=== PATIENT | female | born 1960 | race Hispanic/Latino ===

== ENCOUNTER 2018-05-24 15:57 | Outpatient (CLI) | payer BC | END 2018-05-24 15:58 | disposition home or self-care (01) | LOC: BICMAMMO 15:57 | PROVIDERS: ATTEND Obstetrics & Gynecology | DX: Z12.31 Encounter for screening mammogram for malignant neoplasm of breast (principal) | CPT/HCPCS: 77063; 77067 ==

== ENCOUNTER 2018-06-16 10:16 | Outpatient (CLI) | payer BC ==
--- NOTE | 2018-06-16 13:47 | MRI ---
MRI CERVICAL SPINE WITHOUT CONTRAST: 06/16/2018 HISTORY: Neck pain with cervical radiculopathy. COMPARISON: None. TECHNIQUE: Multiplanar, multisequence MR imaging of the cervical spine obtained without contrast. FINDINGS: The sagittal STIR imaging demonstrates no focal area of osseous marrow edema. There is no anterolisthesis or retrolisthesis seen within the cervical spine. The craniocervical junction and the atlantoaxial interspace appear within normal limits. C2-C3: No central canal or neural foraminal stenosis. C3-C4: No central canal or neural foraminal stenosis. C4-C5: Small central disk protrusion. No central canal or neural foraminal stenosis. C5-C6: There is disk desiccation and disk bulge with partial effacement of the ventral thecal sac an d mild central canal stenosis. There is a small superimposed right paracentral disk herniation. Mil d right neural foraminal stenosis. No significant left neural foraminal stenosis. Motion artifact s lightly limits detailed assessment at this axial level. C6-C7: No central canal or neural foraminal stenosis. C7-T1: No central canal or neural foraminal stenosis. No focal area of abnormal signal intensity is identified within the cervical cord. IMPRESSION: Degenerative change noted within the cervical spine. Findings are most significant at C5-C6, where t here is disk bulge, with a small right paracentral disk protrusion causing mild central canal stenosi s and mild right neural foraminal stenosis. POS: [facility]
== END 2018-06-16 10:17 | disposition home or self-care (01) ==
LOC: TBSIIMAG 10:16
PROVIDERS: ATTEND Neurological Surgery
DX: M47.22 Other spondylosis with radiculopathy, cervical region (principal); M48.02 Spinal stenosis, cervical region; M50.222 Other cervical disc displacement at C5-C6 level
CPT/HCPCS: 72141

== ENCOUNTER 2018-07-06 06:29 | Day surgery (SDC) | payer BC ==
[2018-07-05 09:20] VITALS: BMI 23.9
[2018-07-06] MEDS ORDERED: Fentanyl 100 MCG/2 ML VIAL ONE ×2 (06:40→08:54)
[2018-07-06] MEDS ORDERED: CEFAZOLIN 2 GM/50 ML BAG ONE (07:00)
[2018-07-06] MEDS ORDERED: Sodium Chloride 0.9% 0 ML ONE (07:15)
[2018-07-06] MEDS ORDERED: Sodium Chloride 0.9% 10 ML ONE (08:13)
[2018-07-06] MEDS ORDERED: Meperidine HCl/PF 25 MG/ML VIAL SLOW IVP PRN (09:37)
[2018-07-06] MEDS ORDERED: PACU-Morphine 4MG/ML VIAL SLOW IVP PRN (09:37)
[2018-07-06] MEDS ORDERED: Promethazine HCl 25 MG/ML VIAL IM PRN (09:37)
[2018-07-06] MEDS ORDERED: HYDROmorphone 2 MG/ML VIAL SLOW IVP PRN (09:37)
[2018-07-06] MEDS ORDERED: Morphine Sulfate 2 MG/ML SYRINGE SLOW IVP PRN (09:37)
[2018-07-06] MEDS ORDERED: Promethazine HCl 25 MG/ML VIAL SLOW IVP PRN (09:37)
[2018-07-06] MEDS ORDERED: Ondansetron HCl/PF 4 MG/2 ML Vial IVP PRN (09:37)
[2018-07-06] MEDS ORDERED: Morphine 4 MG/ML VIAL ONE (11:25)
[2018-07-06] MEDS ORDERED: Morphine 2 MG/ML SYRINGE ONE (12:01)
[2018-07-06] MEDS ORDERED: HYDROcodone/Acetaminophen 5/325 mg Tablet ONE (12:06)
[2018-07-06] MEDS ORDERED: traMADol HCl 50 MG TAB ONE (12:11)
--- NOTE | 2018-07-06 13:07 | OP ---
DATE OF PROCEDURE: 07/06/2018 MANAGER VEHICLE: Felix Persaud PA-C PROCEDURES PERFORMED: Anterior cervical diskectomy C5-C6, interbody arthrodesis, intravertebral biomechanical device, local morselized autograft, demineralized bone matrix, anterior titanium instrumentation C5-C6. DESCRIPTION OF PROCEDURE: The patient was brought to the operating room and intubated. She was positioned supine with the head in modest extension on a gel-filled donut. An incision was made in the right precervical area and dissected medial to the sternocleidomastoid muscle, identified the anterior cervical spinal, and the level was confirmed by x-ray. We placed distraction across C5-C6 and using operative microscope and microdissection techniques, we completely removed the intervertebral disk, decompressing the neural elements from parameter frame with particular attention to the right. Bony endplates were then decorticated for the first arthrodesis and appropriate-sized intervertebral biomechanical PEEK device was brought into the field and filled with demineralized bone matrix and local morselized autograft and tapped in place securely at C5-C6. Next, an anterior plate was brought into the field and secured to C5 and C6 using two 14-mm screws at each level. The wound was extensively irrigated and maximum hemostasis was secured and the wound was closed in anatomic layers. Job ID: [id number]
[2018-07-06] MEDS ORDERED: Dexamethasone 20 MG/5 ML VIAL ONE (15:03)
[2018-07-06] MEDS ORDERED: Ondansetron PF 4 MG/2 ML Vial ONE (15:03)
[2018-07-06] MEDS ORDERED: Lidocaine 1% PF 5 ML VIAL ONE (15:03)
[2018-07-06] MEDS ORDERED: PROPOFOL 200 MG/20 ML VIAL ONE (15:03)
[2018-07-06] MEDS ORDERED: Glycopyrrolate 0.2 MG/ML 5 ML SYRINGE ONE (15:03)
[2018-07-06] MEDS ORDERED: Rocuronium Bromide 10 MG/ML (10ML VIAL) ONE (15:03)
[2018-07-06] MEDS ORDERED: Metoclopramide HCl 10 MG/2 ML VIAL ONE (15:03)
== END 2018-07-06 13:30 | disposition home or self-care (01) ==
LOC: SDC 06:29
PROVIDERS: ATTEND Neurological Surgery
PROC: 0RG10A0 Fusion of Cervical Vertebral Joint with Interbody Fusion Device, Anterior Approach, Anterior Column, Open Approach (ICD-10-PCS; principal; 2018-07-06)
DX: M54.12 Radiculopathy, cervical region (principal); Z90.49 Acquired absence of other specified parts of digestive tract; Z79.3 Long term (current) use of hormonal contraceptives; Z98.890 Other specified postprocedural states
CPT/HCPCS: 76000; C1713; C1776; J0131; J1100; J2001; J2270; J2405; J2704; J2765; J3010; J3490

== ENCOUNTER 2018-07-20 15:33 | Outpatient (CLI) | payer BC ==
--- NOTE | 2018-07-20 16:10 | RAD ---
CERVICAL SPINE FOUR VIEWS: HISTORY: Cervical radiculopathy. Status post fusion_surgery. FINDINGS: There is no prevertebral soft tissue swelling. The predental space is normal. On the open-mouth pro jection, limited evaluation of the odontoid process. The lateral masses of C1 and C2 articulate appr opriately. On the AP projection, there is no malalignment. Mild facet hypertrophy. There is an anterior fusion plate with a transvertebral body screw at C5-C6. No perihardware lucency . Straightening of normal cervical lordosis is noted. IMPRESSION: Uncomplicated cervical fusion at C5-C6. POS: [facility]
== END 2018-07-20 15:34 | disposition home or self-care (01) ==
LOC: TBSIIMAG 15:33
PROVIDERS: ATTEND Neurological Surgery
DX: M54.12 Radiculopathy, cervical region (principal); Z98.1 Arthrodesis status
CPT/HCPCS: 72040

== ENCOUNTER 2018-08-25 08:37 | Inpatient (IN) | payer BC ==
[~2018-08-25 08:37] MED LIST: ISOVUE-370 76%-LOCM 1 ML ONE
[2018-08-25] MEDS ORDERED: Ketorolac Tromethamine 30 MG/ML VIAL ONE (08:43)
[2018-08-25] MEDS ORDERED: Fentanyl 100 MCG/2 ML VIAL ONE (08:47)
[2018-08-25 08:58] LABS: #Eosinphils 0.1 thou/uL (0.0-0.7); #Lymphocytes 1.7 thou/uL (1.20-3.40); #Monocytes 0.8 thou/uL (0.11-0.59); #Neutrophils 15.1 thou/uL (1.40-6.50); %Basophils 0.3 % (0.0-1.0); %Eosinophils 0.5 % (0.0-10.0); %Lymphocytes 9.5 % (21.0-51.0); %Monocytes 4.7 % (0.0-10.0); %Neutrophils 85.1 % (42.0-75.0); Hemoglobin 13.4 g/dL (12.0-16.0); Mean Corpuscular HGB CONC 32.9 g/dL (32.0-36.0); Mean Corpuscular Hemoglobin 29.4 pg (27.0-31.0); Mean Corpuscular Volume 89.1 fL (78.0-98.0); Mean Platelet Volume 8.1 fL (7.4-10.4); Platelet Count 211 thou/uL (130-400); RBC Distribution Width 13.4 % (11.5-14.5); Red Blood Cell (RBC) Count 4.55 mill/uL (4.20-5.40); White Blood Cell (WBC) Count 17.7 thou/uL (4.8-10.8)
[2018-08-25] MEDS ORDERED: Lidocaine 1% w/Epinephrine 1:100K 20 ML VIAL ONE (09:06)
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
[2018-08-25] MEDS ORDERED: Lidocaine 1% (PF) 30 ML VIAL ONE (09:08)
[2018-08-25 09:19] LABS: ALT (SGPT) 21 U/L (8-55); AST (SGOT) 24 U/L (5-34); Albumin 3.6 g/dL (3.5-5.0); Alkaline Phosphatase 66 U/L (40-150); Anion Gap 17 mmol/L (10-20); BUN (Urea Nitrogen) 15 mg/dL (9.8-20.1); Bilirubin, Total 0.5 mg/dL (0.2-1.2); Calc. Creatinine Clearance 0 mL/min (70-130); Calcium 9.4 mg/dL (7.8-10.44); Carbon Dioxide 17 mmol/L (22-29); Chloride 109 mmol/L (98-107); Estimated GFR-MDRD Greater than 90; Globulin 3.4 g/dL (2.4-3.5); Glucose 128 mg/dL (70-105); Potassium 3.8 mmol/L (3.5-5.1); Sodium 139 mmol/L (136-145)
[2018-08-25 09:20] LABS: INR-International Normal Ratio 1.2
[2018-08-25] MEDS ORDERED: Morphine 4 MG/ML VIAL SLOW IVP PRN (09:31)
[2018-08-25] MEDS ORDERED: Ondansetron ODT 4 MG TAB PO PRN (09:31)
[2018-08-25] MEDS ORDERED: hydrALAZINE 20 MG/ML VIAL SLOW IVP PRN (09:31)
[2018-08-25] MEDS ORDERED: Ondansetron PF 4 MG/2 ML Vial IVP PRN (09:31)
[2018-08-25] MEDS ORDERED: Dextrose 5% in Water 1,000 ML IV PRN (09:31)
[2018-08-25] MEDS ORDERED: Dextrose 50% Abboject 50 ML SYRINGE SLOW IVP PRN (09:31)
[2018-08-25] MEDS ORDERED: Cyclobenzaprine 10 MG TAB PO PRN (09:39)
[2018-08-25] MEDS ORDERED: Sodium Chloride 0.9% 1,000 ML IV SCH (09:45)
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
[2018-08-25] MEDS ORDERED: Ondansetron PF 4 MG/2 ML Vial ONE (10:04)
[2018-08-25] MEDS ORDERED: Morphine 10 MG/ML VIAL ONE (10:04)
[2018-08-25] MEDS ORDERED: Adacel (T-DAP) 0.5 ML SYRINGE ONE (10:05)
[2018-08-25 10:08] LABS: Magnesium 1.8 mg/dL (1.6-2.6); Phosphorus 3.1 mg/dL (2.3-4.7)
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
[2018-08-25] MEDS ORDERED: traMADol HCl 50 MG TAB ONE ×2 (11:52)
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
[2018-08-25] MEDS ORDERED: Cyclobenzaprine 10 MG TAB ONE (14:02)
[2018-08-25] MEDS: Acetaminophen 500 MG TAB PO SCH ×3 (15:15→21:36)
[2018-08-25] MEDS: Ibuprofen 800 MG TAB PO SCH ×2 (15:15→17:53)
[2018-08-25] MEDS: traMADol HCl 50 MG TAB PO SCH ×3 (15:15→21:35)
[2018-08-25] MEDS: Gabapentin 300 MG CAP PO SCH ×2 (15:22→21:36)
--- NOTE | 2018-08-25 16:00 | PDOC.EVN ---
Event Note - Event Note Event Note: Was called by the ER nurse and notified that the patient could only void 30ml in the bed pain and felt she needed to void. Pt became diaphoretic and hypotensive but immediately returned to baseline. A bladder scan was performed with approx. 900ml. Pt was in and out cathed with 800 output which made the patient feel better. Normal VS and exam. Pt also in moderate pain. Asked nurse to make sure she got her scheduled pain meds before going to her room. Pt denies pain or posterior neck tenderness. Full ROM with pain. C-spine cleared and c-collar removed. Right foot and ankle Xray ordered due to pain.
[2018-08-25 16:58] VITALS: BMI 25.6
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
[2018-08-25] MEDS: Famotidine 20 MG TAB PO SCH (21:36)
[2018-08-26] MEDS: Ibuprofen 800 MG TAB PO SCH ×3 (02:51→18:41)
[2018-08-26] MEDS: Acetaminophen 500 MG TAB PO SCH ×3 (03:49→18:41)
[2018-08-26] MEDS: traMADol HCl 50 MG TAB PO SCH ×4 (03:50→21:14)
[2018-08-26 05:49] LABS: #Eosinphils 0.1 thou/uL (0.0-0.7); #Lymphocytes 1.6 thou/uL (1.20-3.40); #Monocytes 0.6 thou/uL (0.11-0.59); #Neutrophils 5.7 thou/uL (1.40-6.50); %Basophils 0.6 % (0.0-1.0); %Eosinophils 1.1 % (0.0-10.0); %Lymphocytes 19.6 % (21.0-51.0); %Monocytes 7.8 % (0.0-10.0); Hemoglobin 10.8 g/dL (12.0-16.0); Mean Corpuscular HGB CONC 33.2 g/dL (32.0-36.0); Mean Corpuscular Hemoglobin 30.1 pg (27.0-31.0); Mean Corpuscular Volume 90.5 fL (78.0-98.0); Mean Platelet Volume 8.2 fL (7.4-10.4); Platelet Count 209 thou/uL (130-400); RBC Distribution Width 13.4 % (11.5-14.5); White Blood Cell (WBC) Count 8.1 thou/uL (4.8-10.8)
[2018-08-26 05:51] LABS: ALT (SGPT) 46 U/L (8-55); AST (SGOT) 51 U/L (5-34); Alkaline Phosphatase 66 U/L (40-150); Anion Gap 9 mmol/L (10-20); BUN (Urea Nitrogen) 8 mg/dL (9.8-20.1); Bilirubin, Total 0.7 mg/dL (0.2-1.2); Calc. Creatinine Clearance 97 mL/min (70-130); Calcium 8.7 mg/dL (7.8-10.44); Carbon Dioxide 21 mmol/L (22-29); Chloride 111 mmol/L (98-107); Estimated GFR-MDRD Greater than 90; Globulin 2.7 g/dL (2.4-3.5); Glucose 123 mg/dL (70-105); Magnesium 2.3 mg/dL (1.6-2.6); Potassium 3.8 mmol/L (3.5-5.1); Protein, Total 5.7 g/dL (6.0-8.3); Sodium 137 mmol/L (136-145)
[2018-08-26 05:56] LABS: Phosphorus 2.4 mg/dL (2.3-4.7)
--- NOTE | 2018-08-26 08:19 | RAD ---
SINGLE VIEW OF THE CHEST: COMPARISON: 08/25/2018. HISTORY: Right pneumothorax status post chest tube placement. FINDINGS: A single view of the chest shows a normal-size cardiomediastinal silhouette. There has been placemen t of a right-sided chest tube with evacuation of the previously seen pneumothorax. No consolidation, mass, or pleural effusion are seen. IMPRESSION: Evacuation of right pneumothorax. POS: [facility]
--- NOTE | 2018-08-26 08:35 | CT ---
CT HEAD WITHOUT CONTRAST: 08/26/2018 HISTORY: Evaluate traumatic brain injury, trauma. Findings suspicious for small volume acute subdural hemorrh age noted on prior CT exam. COMPARISON: 08/25/2018 TECHNIQUE: Axial CT imaging at 5 mm intervals from the vertex through the skull base without contrast. FINDINGS: Along the anterior aspect of the interhemispheric falx, there is nodular hyperdensity, measuring up t o 3 mm in transverse dimension, similar when compared to the prior examination, suggesting a small am ount of acute subdural blood. No midline shift or mass effect. No ventricular enlargement. No sign ificant interval change. The imaged paranasal sinuses/mastoid air cells appear well aerated. No dis placed calvarial fracture. IMPRESSION: Findings suggesting small volume stable subdural hemorrhage, as detailed above. POS: [facility]
[2018-08-26] MEDS ORDERED: CEFAZOLIN 2 GM in Premix Bag 1 BAG IVPB SCH (09:30)
[2018-08-26] MEDS ORDERED: Ketorolac Tromethamine 30 MG/ML VIAL ONE (09:45)
[2018-08-26] MEDS ORDERED: Dexamethasone 20 MG/5 ML VIAL ONE (09:45)
[2018-08-26] MEDS ORDERED: PROPOFOL 200 MG/20 ML VIAL ONE (09:45)
[2018-08-26] MEDS ORDERED: Ondansetron PF 4 MG/2 ML Vial ONE (09:45)
[2018-08-26] MEDS ORDERED: Lidocaine 1% PF 5 ML VIAL ONE (09:45)
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
[2018-08-26] MEDS: Gabapentin 300 MG CAP PO SCH ×3 (10:01→21:15)
[2018-08-26] MEDS: Famotidine 20 MG TAB PO SCH ×2 (10:02→21:14)
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
[2018-08-26] MEDS ORDERED: Midazolam HCl 2 mg/2 ml Vial ONE (12:15)
[2018-08-26] MEDS ORDERED: Fentanyl 100 MCG/2 ML VIAL ONE (12:15)
[2018-08-26] MEDS ORDERED: Bupivacaine HCl 0.5%/Epinephrine 1:200,000/PF 30 ml Vial ONE (13:13)
[2018-08-26] MEDS ORDERED: Promethazine HCl 25 MG/ML VIAL IM PRN (13:50)
[2018-08-26] MEDS ORDERED: Promethazine HCl 25 MG/ML VIAL SLOW IVP PRN (13:50)
[2018-08-26] MEDS ORDERED: Ondansetron HCl/PF 4 MG/2 ML Vial IVP PRN (13:50)
[2018-08-26] MEDS ORDERED: Morphine Sulfate 2 MG/ML SYRINGE SLOW IVP PRN (13:50)
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
[2018-08-26] MEDS: CEFAZOLIN 2 GM in Premix Bag 1 BAG IVPB SCH (21:07)
[2018-08-27] MEDS: Acetaminophen 500 MG TAB PO SCH ×5 (00:53→18:43)
[2018-08-27] MEDS: Ibuprofen 800 MG TAB PO SCH ×3 (01:00→18:43)
[2018-08-27] MEDS: traMADol HCl 50 MG TAB PO SCH ×4 (05:05→21:17)
[2018-08-27] MEDS: CEFAZOLIN 2 GM in Premix Bag 1 BAG IVPB SCH (05:07)
[2018-08-27] MEDS ORDERED: Potassium Phosphate 30 MMOL in Sodium Chloride 0.9% 500 ML IVPB SCH (07:00)
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
[2018-08-27] MEDS: Famotidine 20 MG TAB PO SCH ×2 (08:59→21:17)
[2018-08-27] MEDS: Gabapentin 300 MG CAP PO SCH ×3 (08:59→21:17)
[2018-08-27] MEDS ORDERED: ETHINYL ESTRADIOL PO SCH (09:00)
[2018-08-27] MEDS ORDERED: DROSPIRENONE PO SCH (09:00)
[2018-08-27] MEDS: Enoxaparin Sodium 40 MG/0.4 ML SYRINGE SC SCH (09:00)
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
[2018-08-28] MEDS: Ibuprofen 800 MG TAB PO SCH ×2 (01:09→09:41)
[2018-08-28] MEDS: Acetaminophen 500 MG TAB PO SCH ×3 (01:09→12:33)
[2018-08-28 05:00] LABS: #Basophils 0.1 thou/uL (0.0-0.2); #Eosinphils 0.2 thou/uL (0.0-0.7); #Lymphocytes 1.8 thou/uL (1.20-3.40); #Monocytes 0.6 thou/uL (0.11-0.59); %Basophils 0.8 % (0.0-1.0); %Eosinophils 3.4 % (0.0-10.0); %Lymphocytes 26.6 % (21.0-51.0); %Monocytes 8.4 % (0.0-10.0); %Neutrophils 60.8 % (42.0-75.0); Hemoglobin 10.2 g/dL (12.0-16.0); Mean Corpuscular HGB CONC 33.2 g/dL (32.0-36.0); Mean Corpuscular Hemoglobin 29.7 pg (27.0-31.0); Mean Corpuscular Volume 89.3 fL (78.0-98.0); Mean Platelet Volume 8.4 fL (7.4-10.4); Platelet Count 205 thou/uL (130-400); RBC Distribution Width 13.4 % (11.5-14.5); Red Blood Cell (RBC) Count 3.43 mill/uL (4.20-5.40); White Blood Cell (WBC) Count 6.6 thou/uL (4.8-10.8)
[2018-08-28 05:23] LABS: Anion Gap 12 mmol/L (10-20); BUN (Urea Nitrogen) 10 mg/dL (9.8-20.1); Calc. Creatinine Clearance 104 mL/min (70-130); Calcium 8.4 mg/dL (7.8-10.44); Carbon Dioxide 20 mmol/L (22-29); Chloride 110 mmol/L (98-107); Estimated GFR-MDRD Greater than 90; Glucose 92 mg/dL (70-105); Magnesium 1.6 mg/dL (1.6-2.6); Sodium 138 mmol/L (136-145)
[2018-08-28] MEDS: traMADol HCl 50 MG TAB PO SCH ×2 (05:31→09:41)
[2018-08-28] MEDS: Gabapentin 300 MG CAP PO SCH (08:29)
[2018-08-28] MEDS: Enoxaparin Sodium 40 MG/0.4 ML SYRINGE SC SCH (08:30)
[2018-08-28] MEDS: Famotidine 20 MG TAB PO SCH (08:30)
[2018-08-28] MEDS ORDERED: Polyethylene Glycol 3350 17 GM Packet PO SCH (09:00)
[2018-08-28] MEDS ORDERED: Senokot S 8.6-50 MG TAB PO SCH (09:00)
--- NOTE | 2018-08-28 10:01 | RAD ---
PORTABLE CHEST: DATE: 08/28/2018. PROVIDED CLINICAL HISTORY: Chest tube removal. FINDINGS: Comparison is made with the study dated 08/27/2018. Cardiac and mediastinal silhouette was unchanged in appearance. Interval removal of right-sided chest tube with small volume right pneumothorax demon strated. The lungs appear clear. No evidence for pleural fluid. IMPRESSION: Small volume right pneumothorax status post chest tube removal. CODE T POS: NEIDA
[2018-08-28 12:13] VITALS: BP 129/71; TEMP 97.9
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
== END 2018-08-28 15:37 | disposition home or self-care (01) | DRG 958 ==
LOC: ERS 08:37 → ERHOLD 09:31 → SURG A 14:51
PROVIDERS: ADMIT Surgery; ATTEND Surgery
PROC: 0W9900Z Drainage of Right Pleural Cavity with Drainage Device, Open Approach (ICD-10-PCS; principal; 2018-08-25)
PROC: 0QSN04Z Reposition Right Metatarsal with Internal Fixation Device, Open Approach (ICD-10-PCS; 2018-08-25)
DX: S92.351A Displaced fracture of fifth metatarsal bone, right foot, initial encounter for closed fracture (principal); S06.6X9A Traumatic subarachnoid hemorrhage with loss of consciousness of unspecified duration, initial encounter; J93.9 Pneumothorax, unspecified; S27.321A Contusion of lung, unilateral, initial encounter; S22.43XA Multiple fractures of ribs, bilateral, initial encounter for closed fracture; V89.2XXA Person injured in unspecified motor-vehicle accident, traffic, initial encounter; S90.01XA Contusion of right ankle, initial encounter
CPT/HCPCS: 36415; 51701; 70450; 71045; 71260; 72125; 72170; 74177; 76000; 80048; 80053; 83735; 84100; 85025; 85610; 85730; 86850; 86900; 86901; 90471; 90715; 93005; 94640; 96361; 96374; 96375; A4353; C1713; C1769; G0390; J0670; J1650; J1885; J2001; J2250; J2270; J2405; J3010; J3475; J7050; J7620; Q9966

== ENCOUNTER 2018-09-07 12:37 | Outpatient (CLI) | payer BC ==
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
== END 2018-09-07 12:38 | disposition home or self-care (01) ==
LOC: RAD 12:37
PROVIDERS: ATTEND Nurse Practitioner Family
DX: S22.43XD Multiple fractures of ribs, bilateral, subsequent encounter for fracture with routine healing (principal); Z98.890 Other specified postprocedural states
CPT/HCPCS: 71046

== ENCOUNTER 2018-09-16 12:54 | Outpatient (CLI) | payer BC ==
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
== END 2018-09-16 12:55 | disposition home or self-care (01) ==
LOC: TBSIIMAG 12:54
PROVIDERS: ATTEND Neurological Surgery
DX: M50.10 Cervical disc disorder with radiculopathy, unspecified cervical region (principal)
CPT/HCPCS: 72040

== ENCOUNTER 2018-10-21 14:00 | Outpatient (CLI) | payer BC ==
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
== END 2018-10-21 14:01 | disposition home or self-care (01) ==
LOC: TBSIIMAG 14:00
PROVIDERS: ATTEND Neurological Surgery
DX: S06.5X0D Traumatic subdural hemorrhage without loss of consciousness, subsequent encounter (principal)
CPT/HCPCS: 70450

== ENCOUNTER 2019-03-25 07:48 | Day surgery (SDC) | payer BC ==
[2019-03-24 11:08] VITALS: BMI 25.6
[2019-03-25] MEDS ORDERED: Bupivacaine PF 0.5% 30 ML VIAL ONE (08:53)
[2019-03-25] MEDS ORDERED: Fentanyl 100 MCG/2 ML VIAL ONE (09:05)
[2019-03-25] MEDS ORDERED: HYDROcodone/Acetaminophen 5/325 mg Tablet ONE (10:39)
--- NOTE | 2019-03-25 13:43 | OP ---
DATE OF PROCEDURE: 03/25/2019 PREOPERATIVE DIAGNOSIS: Symptomatic retained hardware, right foot. POSTOPERATIVE DIAGNOSIS: Symptomatic retained hardware, right foot. PROCEDURE PERFORMED: Removal of screw from right fifth metatarsal. ANESTHESIA: General. TOURNIQUET TIME: Zero. ESTIMATED BLOOD LOSS: Less than 5 mL. COMPLICATIONS: None. DRAINS: None. SPECIMEN: Explanted screw given to the patient. INDICATIONS FOR PROCEDURE: The patient is a 58-year-old lady, status post fracture of the base of right fifth metatarsal. This was displaced and treated with open reduction and screw fixation. The patient has gone on to heal her fracture and now is having symptoms from the retained hardware. After discussion with the patient including risks and benefits, we decided to proceed with removal of this retained screw. Informed consent has been obtained. I believe all questions answered. DESCRIPTION OF PROCEDURE: The patient was brought to the operating room, and a time-out performed followed by induction of general anesthesia. Next, she was positioned supine on the OR table, and a sterile prep and drape was performed on the right lower extremity. Next, following the path of the prior skin incision, skin was incised proximal to the base of the fifth metatarsal. Blunt dissection was carried down to the screw head. The screw head was identified, and then the screw removed without difficulty. The wound was then irrigated with bulb syringe and then closed with two 3-0 nylon interrupted sutures. Xeroform gauze and SHANNON wrap dressing were then applied to the foot, and then the patient was transferred to recovery room in stable condition. There were no complications. She tolerated the procedure well. Job ID: [id number]
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
== END 2019-03-25 10:55 | disposition home or self-care (01) ==
LOC: SDC 07:48
PROVIDERS: ATTEND Orthopaedic Surgery
PROC: 0QP Lower Bones, Removal (ICD-10-PCS; principal; 2019-03-25)
DX: T84.84XA Pain due to internal orthopedic prosthetic devices, implants and grafts, initial encounter (principal)
CPT/HCPCS: 76000; J0690; J3010; S0020

== ENCOUNTER 2020-08-03 08:40 | Outpatient (CLI) | payer BC ==
--- NOTE | 2020-08-03 08:58 | RAD ---
EXAM: Chest PA and lateral: HISTORY: Pain COMPARISON: 09/07/2018 FINDINGS: Heart size:Within normal limits. Lungs:Clear of acute process. No confluent pneumonia, overt edema, pleural effusion, or other acute process. IMPRESSION: No significant acute intrathoracic disease.
== END 2020-08-03 08:41 | disposition home or self-care (01) ==
LOC: RAD-FRANK 08:40
PROVIDERS: ATTEND Nurse Practitioner Family
DX: M35.3 Polymyalgia rheumatica (principal)
CPT/HCPCS: 71046

== ENCOUNTER 2020-09-20 15:04 | Outpatient (CLI) | payer BC | END 2020-09-20 15:05 | disposition home or self-care (01) | LOC: BICMAMMO 15:04 | PROVIDERS: ATTEND Internal Medicine Rheumatology | DX: Z13.820 Encounter for screening for osteoporosis (principal); Z78.0 Asymptomatic menopausal state; M81.0 Age-related osteoporosis without current pathological fracture | CPT/HCPCS: 77080 ==

== ENCOUNTER 2021-10-22 08:27 | Outpatient (CLI) | payer BC | END 2021-10-22 08:28 | disposition home or self-care (01) | LOC: BICMAMMO 08:27 | PROVIDERS: ATTEND Internal Medicine Rheumatology | DX: M81.0 Age-related osteoporosis without current pathological fracture (principal); M85.89 Other specified disorders of bone density and structure, multiple sites | CPT/HCPCS: 77080 ==

== ENCOUNTER 2023-02-18 13:20 | Outpatient (CLI) | payer BC | END 2023-02-18 13:21 | disposition home or self-care (01) | LOC: RAD-FRANK 13:20 | PROVIDERS: ATTEND Nurse Practitioner Family | DX: S60.459A Superficial foreign body of unspecified finger, initial encounter (principal); Z18.9 Retained foreign body fragments, unspecified material; M79.89 Other specified soft tissue disorders ==

== ENCOUNTER 2023-02-20 22:38 | Observation (INO) | payer BC ==
[2023-02-20 23:33] LABS: #Monocytes 0.9 thou/uL (0.11-0.59); %Basophils 0.2 % (0.0-1.0); %Eosinophils 0.2 % (0.0-10.0); %Lymphocytes 9.8 % (21.0-51.0); %Monocytes 6.7 % (0.0-10.0); %Neutrophils 82.8 % (42.0-75.0); Hematocrit 38.8 % (36.0-47.0); Hemoglobin 13.2 g/dL (12.0-16.0); Mean Corpuscular Hemoglobin 30.4 pg (27.0-31.0); Mean Corpuscular Volume 89.4 fl (78.0-98.0); Mean Platelet Volume 10.2 fL (7.4-10.4); Platelet Count 218 10x3/uL (130-400); RBC Distribution Width 12.7 % (11.5-14.5); Red Blood Cell (RBC) Count 4.34 mill/uL (4.20-5.40); White Blood Cell (WBC) Count 13.2 10x3/uL (4.8-10.8)
[2023-02-20 23:51] LABS: Bacteria/HPF None Seen HPF (None Seen); Bilirubin Negative (Negative); Blood, Urine 3+ (Negative); CAUTI Indications for Culture Dysuria,urgency,freq; Clarity Turbid (Clear); Glucose, Urine (Dipstick) Normal (Negative); Ketone, Urine Negative (Negative); Leukocyte 500 Leu/uL (Negative); Nitrite Negative (Negative); Protein, Urine (Dipstick) 100 mg/dL (Neg-Trace); RBC/HPF Greater than 50 HPF (0-3); Specific Gravity, Urine 1.012 (1.002-1.036); Squamous Epithelial 0-3 HPF (0-3); Urobilinogen Normal mg/dL (Less than 2); WBC/HPF Greater than 50 HPF (0-3)
[2023-02-20 23:53] LABS: Urine Culture Reflex Yes Yes
[2023-02-20 23:58] LABS: Troponin I Less than 0.010 ng/mL (< 0.028)
[2023-02-21 00:07] LABS: ALT (SGPT) 20 U/L (8-55); AST (SGOT) 19 U/L (5-34); Albumin 4.1 g/dL (3.4-4.8); Alkaline Phosphatase 73 U/L (40-110); Anion Gap 14 mmol/L (10-20); BUN (Urea Nitrogen) 16 mg/dL (9.8-20.1); Bilirubin, Total 0.4 mg/dL (0.2-1.2); Calc. Creatinine Clearance 0 mL/min (70-130); Calcium 9.8 mg/dL (7.8-10.44); Carbon Dioxide 19 mmol/L (23-31); Chloride 109 mmol/L (98-107); Estimated GFR 98; Globulin 3.4 g/dL (2.4-3.5); Glucose 121 mg/dL (80-115); Lipase 14 U/L (8-78); Potassium 3.9 mmol/L (3.5-5.1); Protein, Total 7.5 g/dL (5.8-8.1); Sodium 137 mmol/L (136-145)
[2023-02-21] MEDS ORDERED: Morphine 4 MG/ML VIAL ONE (00:12)
[2023-02-21] MEDS ORDERED: Ondansetron PF 4 MG/2 ML Vial ONE (00:12)
[2023-02-21] MEDS ORDERED: cefTRIAXone (ROCEPHIN) 2 GM VIAL ONE (00:12)
[2023-02-21] MEDS ORDERED: fentaNYL 50 mcg/mL 1 mL Vial ONE (02:17)
[2023-02-21 03:41] VITALS: BMI 23.1
[2023-02-21] MEDS ORDERED: Ondansetron PF 4 MG/2 ML Vial IVP PRN (04:34)
[2023-02-21] MEDS ORDERED: Acetaminophen 650 MG Suppository PR PRN (04:34)
[2023-02-21] MEDS ORDERED: Acetaminophen 325 MG TAB PO PRN (04:34)
[2023-02-21] MEDS ORDERED: Ondansetron ODT 4 MG TAB PO PRN (04:34)
[2023-02-21] MEDS: Sodium Chloride 0.9% 1,000 ML IV SCH ×2 (06:27→15:54)
[2023-02-21 06:41] LABS: #Monocytes 0.6 thou/uL (0.11-0.59); #Neutrophils 6.7 thou/uL (1.40-6.50); %Basophils 0.1 % (0.0-1.0); %Eosinophils 0.2 % (0.0-10.0); %Lymphocytes 16.6 % (21.0-51.0); %Monocytes 7.2 % (0.0-10.0); %Neutrophils 75.7 % (42.0-75.0); Hematocrit 34.5 % (36.0-47.0); Hemoglobin 11.5 g/dL (12.0-16.0); Mean Corpuscular HGB CONC 33.3 g/dL (32.0-36.0); Mean Corpuscular Hemoglobin 29.8 pg (27.0-31.0); Mean Corpuscular Volume 89.4 fl (78.0-98.0); Mean Platelet Volume 9.6 fL (7.4-10.4); Platelet Count 173 10x3/uL (130-400); RBC Distribution Width 12.9 % (11.5-14.5); Red Blood Cell (RBC) Count 3.86 mill/uL (4.20-5.40); White Blood Cell (WBC) Count 8.9 10x3/uL (4.8-10.8)
[2023-02-21 07:04] LABS: Anion Gap 10 mmol/L (10-20); BUN (Urea Nitrogen) 9 mg/dL (9.8-20.1); Calc. Creatinine Clearance 88 mL/min (70-130); Calcium 8.5 mg/dL (7.8-10.44); Carbon Dioxide 23 mmol/L (23-31); Chloride 113 mmol/L (98-107); Estimated GFR 100; Glucose 134 mg/dL (80-115); Potassium 4.2 mmol/L (3.5-5.1); Sodium 142 mmol/L (136-145)
[2023-02-21 07:11] LABS: Troponin I Less than 0.010 ng/mL (< 0.028)
[2023-02-21 10:29] VITALS: TEMP 97.8
[2023-02-21 11:54] LABS: Troponin I Less than 0.010 ng/mL (< 0.028)
[2023-02-21 16:09] VITALS: BP 103/61
[2023-02-21] MEDS ORDERED: cefTRIAXone\\ROCEPHIN 1 GM in Sodium Chloride 0.9% 100 ML IVPB SCH (21:00)
== END 2023-02-21 17:54 | disposition home or self-care (01) ==
LOC: ERS 22:38 → ERHOLD 02-21 02:43 → T4-A 02-21 07:23
PROVIDERS: ADMIT Student in an Organized Health Care Education/Training Program; ATTEND Physician Assistant
DX: N12 Tubulo-interstitial nephritis, not specified as acute or chronic (principal); N13.2 Hydronephrosis with renal and ureteral calculous obstruction; R31.9 Hematuria, unspecified; L03.019 Cellulitis of unspecified finger; Z90.49 Acquired absence of other specified parts of digestive tract
CPT/HCPCS: 36415; 74176; 80048; 80053; 81001; 83690; 84484; 85025; 87077; 87086; 87186; 93005; 96365; 96375; G0378; J0696; J2270; J2405; J3010; J7050